=== PATIENT | female | born 1945 | race Caucasian/White ===

== ENCOUNTER 2018-12-04 07:14 | Emergency (ER) | payer MEDICARE, MEDICAID, SELFPAY ==
[2018-12-04 07:22] VITALS: BP 178/71; PULSE 68; RESP 16; TEMP 36.8; O2SAT 98
[2018-12-04 07:54] VITALS: RESP 16
[2018-12-04] MEDS: Meclizine 25 MG TAB (08:10)
[2018-12-04] MEDS: Normal Saline 1,000 ML 1000 ML IV (08:15)
--- NOTE | 2018-12-04 08:17 | W.ED.GENAD ---
Discharge Plan Disposition Patient Disposition: HOME Condition: Good Discharge Details Chief Complaint: Dizzy/Sync Clinical Impression: Peripheral vertigo Primary Care Provider: [facility] Provider: Javier Caldwell Home Meds and New Rx's Prescriptions: New meclizine 25 mg tablet 25 mg PO TID Qty: 14 RF: 0 No Action losartan 50 mg Tablet 50 mg PO DAILY RF: 0 lovastatin 40 mg Tablet 40 mg PO DAILY RF: 0 amlodipine 5 mg Tablet 5 mg PO DAILY RF: 0 nadolol 40 mg Tablet 40 mg PO DAILY RF: 0 imipramine HCl 10 mg Tablet 10 mg PO TID PRNRF: 0 esomeprazole magnesium [Nexium 24HR] 20 mg Capsule,Delayed Release(Dr/Ec) 20 mg PO PRNRF: 0 Discharge Instructions Instructions: Vertigo (ED) Additional Instructions: You have peripheral vertigo. Please drink 10 to 12 cups of water per day. You have been on meclizine before, please fill the prescription and take it as directed. If you notice any worsening of your symptoms, or any new symptoms such as vomiting, diarrhea, fever, chills, shortness of breath, chest pain, numbness, weakness, or fainting , please return immediately to the emergency department for reevaluation. Please follow up with your primary care provider as soon as possible for reassessment and reevaluation. As always, it was a pleasure participating in your medical care today. Medical Decision Making This is a 73-year-old female with past medical history of hypertension high cholesterol who presents today for evaluation of dizziness and room spinning sensation. It occurred when she sat upright this morning. Symptoms are made worse when she turns her head suddenly to the left. She shows no physical exam evidence of a central event, signs and symptoms are consistent with peripheral vertigo. Will give meclizine, gently rehydrate and reassess. I feel she can be safely discharged home with close follow-up, continued hydration and meclizine. Patient ambulates well without difficulty 8:46 AM On reassessment the patient is feeling much better, she has been hydrated, she ambulates well, and shows no signs of significant dizziness or ataxia. Patient will be discharged home with meclizine and close follow-up with PCP. We discussed red flags which to return. I have extensively reviewed the treatment plan and discharge instructions with the patient. I have addressed all patient concerns at this time. The patient was made aware of what symptoms to monitor for that would warrant a return to the emergency department. Discussed the plan with the patient, they demonstrate verbal understanding and agreement with our assessment and plan at this time. 7:36 AM Rate 64, intervals normal, sinus rhythm, no significant ST elevations or depressions, no T wave inversions, no evidence of Brugada, delta wave, or epsilon wave. No other significant abnormalities. HPI General Date/Time Provider Initiated Documentation: 12/04/18 07:51. HPI Narrative: This is a 73-year-old female with a past medical history of hypertension, high cholesterol who presents today for evaluation of dizziness. The patient states that this morning she woke up, so she sat up in bed she had notably dizzy and has been that way consistently since then. It is worse when she turns her head suddenly to the left. It is associated with nausea 1 or 2 episodes of light diarrhea, but no vomiting. She denies any ringing in her ear. Symptoms are persistent in spite of drinking a cup of water. She has had a history of vertigo in the past and states that the symptoms today feel identical to that. She denies any recent falls, trauma to her head, vision changes, headache, chest pain, shortness of breath, actual syncope, numbness tingling or weakness. She denies any other complaints or modifying factors. She denies any history of stroke or cardiac disease Related Data Home Medications Medication Instructions Recorded Confirmed amlodipine 5 mg PO DAILY 12/04/18 12/04/18 esomeprazole magnesium [Nexium 20 mg PO PRN 12/04/18 24HR] imipramine HCl 10 mg PO TID PRN 12/04/18 12/04/18 losartan 50 mg PO DAILY 12/04/18 12/04/18 lovastatin 40 mg PO DAILY 12/04/18 12/04/18 meclizine 25 mg PO TID #14 tab 12/04/18 nadolol 40 mg PO DAILY 12/04/18 12/04/18 Previous Rx's Medication Instructions Recorded meclizine 25 mg PO TID #14 tab 12/04/18 Allergies Allergy/AdvReac Type Severity Reaction Status Date / Time hydroxyzine [From Vistaril] Allergy Unverified 12/04/18 07:27 acetaminophen [From Vicodin] AdvReac Unverified 12/04/18 07:28 hydrocodone [From Vicodin] AdvReac Unverified 12/04/18 07:28 ibuprofen AdvReac Unverified 12/04/18 07:28 General Stated Complaint: Dizzy/Sync LAURA: 3 Review of Systems Review of Systems All systems reviewed & are unremarkable except as noted in HPI and below PFSH Social History Smoking/Tobacco Use Status: Current every day Tobacco Type: cigarettes Alcohol Intake: never Substance use type: does not use Exam Narrative Exam Narrative: 1.Const: Well-nourished, Well-developed, appearing stated age 2.Eyes: PERRL, no conjunctival injection, and symmetrical lids. 3.ENT: Atraumatic external nose and ears. Moist MM. Neck: Symmetric, trachea midline, No thyromegaly. 4.CVS: +S1/S2, No murmurs or gallops. Peripheral pulses 2+ and equal in all extremities. Brisk capillary refill in all extremities. 5.RESP: Unlabored respiratory effort. Clear to auscultation bilaterally. No wheezes rales or rhonchi 6.GI: Soft, Nontender/Nondistended, No hepatosplenomegaly. No guarding or rebound. 7.MSK: Normocephalic/Atraumatic, Extremities w/o deformity or ttp No cyanosis or clubbing, Normal movement of all extremities 8.Skin: Warm, Dry. No rashes or lesions. 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 Sensation grossly intact, no focal neurologic deficits. All 6 cardinal planes of vision are fully intact. No evidence of rotatory or vertical nystagmus. The patient demonstrated a normal [id number]-[id number], good dexterity. There was no evidence of dysdiadochokinesia. Patient was able to ambulate without difficulty. There was no wide-based gait. Romberg, and txku-wi-[id number] are both normal on testing. Sensation was intact bilaterally as well as muscle strength bilaterally for all extremities. Patient was able to verbalize butter cup with no slurring, or miss pronunciation. Cerebellar function testing is normal. The patient demonstrates a normal hints exam with no findings concerning for a central event. No vertical nystagmus. But there is notable left-sided horizontal nystagmus that is fatigable. The head impulse test is negative for any significant central abnormality, but does show a positive head impulse test to the left is suggestive of a peripheral etiology. Normal test of skew. No suggestion of a central cerebellar event. 10.Psych: (AAO) x3. Appropriate mood and affect Course Vital Signs Temperature 36.8 C 12/04/18 07:22 Pulse 68 12/04/18 07:22 Respiratory Rate 16 12/04/18 07:22 Blood Pressure 178/71 H 12/04/18 07:22 Pulse Oximetry 98 12/04/18 07:22 Temperature 36.8 C 12/04/18 07:22 Temperature Source Skin 12/04/18 07:22 Pulse 68 12/04/18 07:22 Respiratory Rate 16 12/04/18 07:54 Respiratory Effort Non-Labored 12/04/18 07:54 Respiratory Depth Normal 12/04/18 07:54 Respiratory Pattern Normal 12/04/18 07:54 Blood Pressure 178/71 H 12/04/18 07:22 Blood Pressure Position Sitting 12/04/18 07:22 Pulse Oximetry 98 12/04/18 07:22 Oxygen Delivery Method Room Air 12/04/18 07:22 Oxygen Flow Rate 0 12/04/18 07:22 Pain Level 0 12/04/18 07:22 Comment 12/04/18 07:22
[2018-12-04 11:00] VITALS: BP 178/71; PULSE 68; RESP 16; TEMP 36.8; O2SAT 98
== END 2018-12-04 09:01 | disposition home or self-care (01) ==
PROVIDERS: Emergency Provider Student in an Organized Health Care Education/Training Program
DX: H81.392 Other peripheral vertigo, left ear (principal); I10 Essential (primary) hypertension
CPT/HCPCS: 96360; 99283

== ENCOUNTER 2020-05-05 08:38 | Emergency (ER) | payer MEDICARE, MEDICAID, SELFPAY ==
[2020-05-05 08:45] VITALS: BP 154/66; PULSE 65; RESP 15; TEMP 36.7; O2SAT 98
--- NOTE | 2020-05-05 09:14 | ED.GENADUL_ITS ---
Discharge Plan Disposition Patient Disposition: HOME Condition: Stable Discharge Details Clinical Impression: Low back pain radiating to right leg Primary Care Provider: [facility]leigh,Local ED Provider: Zain Fletcher Home Meds and New Rx's Prescriptions: New prednisone 20 mg tablet 40 mg PO DAILY Qty: 8 RF: 0 Continued losartan 50 mg Tablet 50 mg PO DAILY RF: 0 lovastatin 40 mg Tablet 40 mg PO DAILY RF: 0 amlodipine 5 mg Tablet 5 mg PO DAILY RF: 0 nadolol 40 mg Tablet 40 mg PO DAILY RF: 0 imipramine HCl 10 mg Tablet 10 mg PO TID PRNRF: 0 meclizine 25 mg tablet 25 mg PO TID Qty: 14 RF: 0 acetaminophen-codeine 300-30 mg tablet 1 - 2 tab PO QID PRN PRNRF: 0 Discharge Instructions Instructions: Lumbar Radiculopathy (ED) Additional Instructions: Please take acetaminophen (tylenol) - 650mg every 6 hours by mouth as needed for pain. You may substitute Tylenol with codeine. Do not take more than a total of 4000 mg of Tylenol in a 24-hour period. Take prednisone as prescribed. You received initial dose here today in the emergency department. Your next dose is tomorrow May 06. Use lidocaine patches. These are [id number]. Dose according to label. Please contact your primary care physician to arrange follow-up. Call tomorrow. Return to the ER for any worsening or new concerning symptoms. Discharge Data Discharge Date/Time-TO BE ENTERED AT DEPARTURE: 05/05/20 10:20 Medical Decision Making 74-year-old female here with right posterior lateral hip and low back pain radiating into her right anterior thigh. Patient is neurovascular intact distally. No swelling. No signs of inflammation. Patient is tender right lumbar paraspinal L2 and I suspect her pain is radicular in nature. Plan to treat with Toradol IM, lidocaine patch, and will give prednisone as patient has adverse side effect of dyspepsia with oral NSAID. --Patient was reassessed and they did have some improvement in her discomfort. She ambulated without dysfunction. And customary discharge instructions were reviewed with the patient and she was encouraged to follow-up with her primary care physician and return immediately for any worsening or new concerning symptoms. HPI General Mode of arrival: ambulatory . Date/Time Provider Initiated Documentation: 05/05/20 08:51 . Limitations to Documentation: no limitations . Information obtained by: patient . HPI Narrative: 74-year-old female with history of low back pain, questionable blood clot unclear if arterial or venous, not on anticoagulants but has had stenting done to her left lower extremity, presents with chief complaint of right hip and leg pain. Pain is localized to posterior lateral hip and wraps anterior medially to thigh. Pain started 3 days ago and has persisted. She is having trouble sleeping because of the pain. She notes that she has been intermittently taking Tylenol with codeine which she is prescribed for her chronic back pain. She last took a dose of T3 last night. Patient denies any recent trauma but does note to nursing that she has been active in assisting her sister with heavy cleaning. She has no associated fever. No rash. No numbness or tingling. No bowel or bladder dysfunction. Related Data Home Medications Medication Instructions Recorded Confirmed amlodipine 5 mg PO DAILY 12/04/18 05/05/20 imipramine HCl 10 mg PO TID PRN 12/04/18 05/05/20 losartan 50 mg PO DAILY 12/04/18 05/05/20 lovastatin 40 mg PO DAILY 12/04/18 05/05/20 meclizine 25 mg PO TID #14 tab 12/04/18 05/05/20 nadolol 40 mg PO DAILY 12/04/18 05/05/20 acetaminophen-codeine 1 - 2 tab PO QID PRN PRN 05/05/20 05/05/20 prednisone 40 mg PO DAILY #8 tab 05/05/20 Previous Rx's Medication Instructions Recorded meclizine 25 mg PO TID #14 tab 12/04/18 prednisone 40 mg PO DAILY #8 tab 05/05/20 Allergies Allergy/AdvReac Type Severity Reaction Status Date / Time hydroxyzine [From Vistaril] Allergy Unverified 05/05/20 08:51 acetaminophen [From Vicodin] AdvReac Unverified 05/05/20 08:51 hydrocodone [From Vicodin] AdvReac Unverified 05/05/20 08:51 ibuprofen AdvReac Unverified 05/05/20 08:51 General Stated Complaint: Orthopedic LAURA: 3 Review of Systems All systems reviewed & are unremarkable except as noted in HPI and below Constitutional Constitutional: Denies fever(s) Musculoskeletal Musculoskeletal: Reports as per HPI PFSH Social History Smoking/Tobacco Use Status: Current every day Tobacco Type: cigarettes Smoking risk assessment performed?: Yes Alcohol Intake: never Substance use type: does not use Do you feel safe at home: Yes Do you feel safe in your relationship?: Yes Exam Const General: cooperative and no acute distress HENMT Mouth: moist mucous membranes Eyes Conjunctivae: normal conjunctivae Sclera: normal sclerae Resp Auscultation: clear to auscultation bilaterally, no rales, no rhonchi and no wheezes Cardio Rate: regular rate and not tachycardic Rhythm: regular rhythm Pulses: dorsalis pedis present on the right 2+ GI Palpation: soft, not firm, no guarding, no masses, not rigid and nontender Back/Spine/Pelvis Thoracic/Lumbar Spine: paraspinal tenderness (Right paraspinal L2), No thoracic spinal tenderness and No lumbar spinal tenderness Skin General skin exam: no rashes or lesions noted Neuro General: patient alert, patient awake, patient oriented x3 and tone normal Motor: strength 5/5 throughout (Right lower extremity) Sensory Exam: no sensory deficits noted (Bilateral lower extremities) and other (No saddle anesthesia) Extrem General: no edema Right lower extremity: hip/thigh Details: tenderness Location: of the hip Location: posteriorly and posterolaterally and normal ROM; no swelling, no crepitus, no deformity and no unusual warmth Psych Appearance: grossly normal Mental Status: mental status grossly normal Course Vital Signs Vital signs: Vital Signs Temperature 36.7 C 05/05/20 08:45 Pulse 65 05/05/20 08:45 Respiratory Rate 15 05/05/20 08:45 Blood Pressure 154/66 H 05/05/20 08:45 Pulse Oximetry 98 05/05/20 08:45 Temperature 36.7 C 05/05/20 08:45 Temperature Source Temporal Artery Scan 05/05/20 08:45 Pulse 65 05/05/20 08:45 Respiratory Rate 15 05/05/20 08:45 Respiratory Effort 05/05/20 08:48 Blood Pressure 154/66 H 05/05/20 08:45 Blood Pressure Position Sitting 05/05/20 08:45 Pulse Oximetry 98 05/05/20 08:45 Oxygen Delivery Method Room Air 05/05/20 08:45 Oxygen Flow Rate 0 05/05/20 08:45 Pain Level 10 05/05/20 08:45
[2020-05-05] MEDS: Lidocaine 5% Patch 1 PATCH TP (09:18)
[2020-05-05] MEDS: predniSONE 20 MG TAB 40 MG PO (09:18)
[2020-05-05] MEDS: Ketorolac 30 MG/ML VIAL IM (09:19)
[2020-05-05 10:12] VITALS: BP 168/55; PULSE 61; RESP 17; TEMP 37.1; O2SAT 98
== END 2020-05-05 10:20 | disposition home or self-care (01) ==
PROVIDERS: Emergency Provider Student in an Organized Health Care Education/Training Program
DX: M54.16 Radiculopathy, lumbar region (principal); M25.551 Pain in right hip
CPT/HCPCS: 96372; 99284; 99283; J1885; J7512